=== PATIENT | male | born 1950 | race Caucasian/White ===

== ENCOUNTER 2018-06-02 07:48 | Outpatient (CLI) | payer OTHER ==
[2018-06-02 09:00] LABS: eGFR (Non-African) > 60
== END 2018-06-02 07:50 ==
LOC: LAB 07:48
PROVIDERS: ATTEND Nurse Practitioner Family
DX: E78.2 Mixed hyperlipidemia (principal); N18.9 Chronic kidney disease, unspecified
CPT/HCPCS: 36415; 80053; 80061

== ENCOUNTER 2018-09-04 15:15 | Emergency (ER) | payer OTHER ==
--- NOTE | 2018-09-04 15:31 | ED Physician Documentation ---
General Adult - HISTORIAN Historian: patient - HPI Stated Complaint: rash Chief Complaint: General Adult Onset: days ago (6) Timing: still present Severity: moderate Further Comments: yes (Pt is a 68 yo male with a lesion on R side of chest/abdomen. This started 6 days ago, initially as a small red patch that grew in size and became itchy then with two areas of central darkening and induration. Pt does not recal being bitten by an insect. He has not felt ill in any other way. No systemic sx, such as n/v, fever.) - ROS CONST: no problems EYES/ENT: none CVS/RESP: none GI/: none MS/SKIN/LYMPH: rash - PAST HX Past History: other (CAD, GERD, HLD, HTN, ) Surgeries/Procedures: other (stents, ortho surgery) Allergies/Adverse Reactions: Allergies Allergy/AdvReac Type Severity Reaction Status Date / Time codeine Allergy Verified 09/04/18 15:29 Home Medications: Ambulatory Orders Medication Instructions Recorded Aspirin [Betsy] 81 mg PO DAILY 09/04/18 Clopidogrel Bisulfate [Clopidogrel] 75 mg PO DAILY 09/04/18 Famotidine [Pepcid] 20 mg PO DAILY 09/04/18 Latanoprost/Pf [Latanoprost 0.005% 1 drop OU DAILY 09/04/18 Eye Drop] Losartan Potassium [Cozaar] 100 mg PO HS 09/04/18 Rosuvastatin Calcium 40 mg PO DAILY 09/04/18 - SOCIAL HX Smoking History: quit greater than 1 year - FAMILY HX Family History: No - REVIEWED ASSESSMENTS Nursing Assessment Reviewed: Yes Vitals Reviewed: Yes Progress - Progress Progress: Cellulitis/abscess vs Type IV hypersensitivity reaction. Rx Doxycycline 100 mg po bid x 14 days. f/u pcp/dermatology. General Adult Physical Exam - PHYSICAL EXAM GENERAL APPEARANCE: no distress EENT: pharynx normal NECK: normal inspection, supple RESPIRATORY: no resp distress, chest non-tender, breath sounds normal CVS: reg rate & rhythm, heart sounds normal BACK: normal inspection SKIN: other (15 cm patch of erythema R lateral abd wall, with central darkening, and induration, which is not floculant. ? Type 4 hypersensitivity.) EXTREMITIES: non-tender, normal range of motion, no evidence of injury, no edema NEURO: oriented X3, motor nml, sensation nml Discharge Clincal Impression: Rash and nonspecific skin eruption Referrals: Jodi Connor PRN [Primary Care Provider] - Condition: Stable Disposition: 01 HOME, SELF-CARE Decision to Admit: NO Decision Time: 16:23
[2018-09-04 15:48] VITALS: BP 126/54
[2018-09-04 16:05] LABS: BASOPHILS % 0.6 % (0.0-1.5); NEUTROPHILS # 6.7 # k/uL (1.4-7.7)
[2018-09-04 16:12] LABS: eGFR (Non-African) > 60
== END 2018-09-04 16:30 | disposition home or self-care (01) ==
LOC: ED 15:15
DX: R21 Rash and other nonspecific skin eruption (principal)
CPT/HCPCS: 80053; 85025